=== PATIENT | male | born 1945 | race Caucasian/White ===

== ENCOUNTER → 2016-12-09 | Outpatient (CLI) | payer MEDICARE, MEDICAID ==
[~2016-12-09] MED LIST: OMNICEF 300 MG300 MG PO
[2016-12-09 17:49] LABS: BUN 14 mg/dL (7-18)
[2016-12-09 18:20] LABS: GFR (ESTIMATED) 66 ML/MIN (>60)
[2016-12-13 08:42] LABS: HBsAg Screen Negative (Negative); Hep B Core Ab, IgM Positive (Negative); Hep B Core Ab, Tot Positive (Negative); Hep B Surface Ab, Qual Reactive (.); Hep C Virus Ab <0.1 (0.0-0.9)
[2016-12-13 09:39] LABS: Hep Be Ag Negative (Negative)
== END ==
LOC: LAB 14:57
PROVIDERS: Internal Medicine Adolescent Medicine
DX: E78.5 Hyperlipidemia, unspecified (principal); R74.0 Nonspecific elevation of levels of transaminase and lactic acid dehydrogenase [LDH]